=== PATIENT | male | born 1940 | race Caucasian/White ===

== ENCOUNTER 2016-09-20 09:04 | Emergency (ER) | payer OTHER ==
[2016-09-20 09:14] VITALS: BP 154/83; PULSE 91; TEMP 98; BMI 30.4
--- NOTE | 2016-09-20 09:15 | PDOC ---
History of Present Illness - General Chief Complaint: Shortness of Breath Stated Complaint: SHORTNESS OF BREATH Time Seen by Provider: 09/20/16 09:06 - History of Present Illness Initial Comments: 09/20/16 12:49 Chief complaint: Double vision and shortness of breath History of present illness: Patient with a history of myasthenia gravis for approximately 2 years, maintained on physostigmine and steroids. Taper his steroids on his own without DrSuellen recommendation approximately 3 weeks ago. Began to have double vision again approximately 3 days ago. At that time, he restarted his prednisone 40 mg daily. He has double vision which is intermittent , mostly when looking straight ahead or slightly to his right. He felt a little short of breath this morning when climbing stairs as well. There is been no muscle weakness of the extremities or difficulty ambulating Past medical history: Myasthenia gravis as noted above. No other active medical or surgical problems. Medications: Physostigmine, and prednisone as noted above Social history: No tobacco, occasional social alcohol, none recently, no nonprescription drugs. Fully active and without disability Family history: Reviewed and Noncontributory including early coronary artery disease, endocrine diseases, metabolic diseases including diabetes, and cancer Physical exam: Alert oriented 3 well-developed well-nourished no acute distress cheerful and cooperative. Patient is fully ambulatory without difficulty and without unsteady or ataxic gait Afebrile, vital signs normal Slight ptosis is apparent in the right eye. EOMs are full. There is subjective diplopia at times when looking at distant objects, but at other times stated vision is normal. Conjunctivae, anterior chambers, and cornea are clear. There is no weakness of the extraocular muscles. The eyes close completely and there is no lack of strength ENT clear Neck supple without bruit mass or nodes Lungs clear CV regular without murmur rub or gallop Abdomen benign Neurological C2 to 12 intact except as noted above. Strength full and symmetric. No focal sensory or motor deficits. Gait stable and unimpaired Impression: Exacerbation of myasthenia gravis due to cessation of prednisone. It is unlikely that this is an acute unrelated neurological cardiac event. His symptoms are exactly as they had been in the past that diagnosis and subsequently. He has no neurological symptoms and no cardiac symptoms Plan:. EKG and enzymes, labs, neurological consultation. Past History - Past Medical History Allergies/Adverse Reactions: Allergies Allergy/AdvReac Type Severity Reaction Status Date / Time No Known Allergies Allergy Verified 09/20/16 09:06 Home Medications: Ambulatory Orders Prednisone 40 mg PO DAILY 09/20/16 Pyridostigmine Capron [Mestinon] 60 mg PO ASDIR 09/20/16 HTN: Yes (NOT ON MEDS NOW.) Other medical history: MYASTHENIA - Surgical History Abdominal Surgery: Yes (HERNIA SX X 4 YEARS AGO) - Psycho/Social/Smoking Cessation Hx Anxiety: No Suicidal Ideation: No Smoking Status: No Smoking History: Never smoked Have you smoked in the past 12 months: No Number of Cigarettes Smoked Daily: 0 Hx Alcohol Use: Yes Drug/Substance Use Hx: No Substance Use Type: Alcohol *Physical Exam - Vital Signs Last Vital Signs Temp Pulse Resp BP Pulse Ox 98 F 91 H 18 154/83 95 09/20/16 09:05 09/20/16 09:05 09/20/16 09:05 09/20/16 09:05 09/20/16 09:05 ED Treatment Course - LABORATORY CBC & Chemistry Diagram: 09/20/16 09:23 09/20/16 09:23 Medical Decision Making - Medical Decision Making 09/20/16 12:[address] in the emergency room. No sign of other neurological disease was found. Recommended discharge, continuation of present still a dose, and follow-up with his neurologist as scheduled on Sunday. Return to ER if symptoms worsen or there or new symptoms that develop. Patient fully ambulatory and in no discomfort and with no disability upon discharge with his to follow-up as directed. *DC/Admit/Observation/Transfer Diagnosis at time of Disposition: Myasthenia gravis - Discharge Dispostion Disposition: HOME Condition at time of disposition: Stable Admit: No - Patient Instructions Printed Discharge Instructions: DI for Myasthenia Gravis ([facility]) Additional Instructions: See your neurologistDr. Canela as scheduled next Sunday. Maintain your prednisone temporarily at 40 mg per day. If symptoms worsen, return to the emergency room.
[2016-09-20 10:06] LABS: BASOPHIL 1.3 % (0-2.0); EOSINOPHIL 1.4 % (0-4.5); MCH 28.8 pg (25.7-33.7); MEAN CELL VOLUME 87.2 fl (80-96); MEAN PLT VOLUME 8.8 fl (7.5-11.1); NEUTROPHILS 62.1 % (42.8-82.8); PLATELET COUNT 255 K/MM3 (134-434); RDW 13.3 % (11.9-15.9)
[2016-09-20 10:07] LABS: INR 0.98 (0.82-1.09)
[2016-09-20 10:10] LABS: ALBUMIN 4.2 g/dl (3.5-5.0); ALK PHOS 66 U/L (32-92); ANION GAP 8 (8-16); BILIRUBIN,TOTAL 1.1 mg/dl (0.2-1.0); CALCIUM 9.4 mg/dl (8.4-10.2); CO2 27 mmol/L (22-28); GLUCOSE,RANDOM 88 mg/dl (74-106); SGOT/AST 40 U/L (10-42); SGPT/ALT 35 U/L (10-40)
[2016-09-20 10:43] LABS: TROPONIN I (DFP) < 0.03 ng/ml (0.03-0.50)
[2016-09-20 10:45] LABS: CK MB 17.5 ng/ml (0.3-4.0); CPK(DFH) 659 IU/L (38-174)
[2016-09-20 10:48] LABS: CK INDEX FOR DOBBS 2.7 % (0.0-5.0)
--- NOTE | 2016-09-20 13:11 | EKG ---
Test Reason : Blood Pressure : / mmHG Vent. Rate : 070 BPM Atrial Rate : 070 BPM P-R Int : 182 ms QRS Dur : 126 ms QT Int : 426 ms P-R-T Axes : 049 -05 032 degrees QTc Int : 460 ms SINUS RHYTHM NON-SPECIFIC INTRA-VENTRICULAR CONDUCTION BLOCK NO PREVIOUS ECGS AVAILABLE Confirmed by ANIBAL VIRGEN MD ([id number] on 09/20/2016 1:10:55 PM Referred By: KAYCE QUIJANO Confirmed By:ANIBAL VIRGEN MD
== END 2016-09-20 11:40 | disposition home or self-care (01) ==
LOC: FER 09:04
DX: G70.00 Myasthenia gravis without (acute) exacerbation (principal)
CPT/HCPCS: 36415; 71020-TC; 80053; 82550; 82553; 84484; 85025; 85610; 93005; 99284-25

== ENCOUNTER 2021-06-08 06:58 | Day surgery (SDC) | payer OTHER ==
[2021-06-06 14:19] VITALS: BMI 27.3
[2021-06-08] MEDS ORDERED: TOBRAMYCIN 0.3% OPHTH SOLN 5 ML BOTTLE ONE (07:31)
[2021-06-08] MEDS: CYCLOPENTOLATE 2% OPHTH SOLN 2 ML BOTTLE ONE ×3 (07:50→08:00)
[2021-06-08] MEDS: TROPICAMIDE 1% OPHTH SOLN 15 ML BOTTLE ONE ×3 (07:50→08:00)
[2021-06-08] MEDS: PHENYLEPHRINE 2.5% OPHTH SOLN 15 ML BOTTLE ONE ×3 (07:50→08:00)
[2021-06-08] MEDS: TOBRAMYCIN 0.3% OPHTH SOLN 5 ML BOTTLE OD SCH ×3 (07:50→08:00)
[2021-06-08] MEDS ORDERED: PHENYLEPHRINE/KETOROLAC 4 ML VIAL IO ONE (08:34)
[2021-06-08] MEDS ORDERED: TETRACAINE 0.5% OPHTH SOLN 2 ML BOTTLE ONE (08:34)
[2021-06-08] MEDS ORDERED: LIDOCAINE 1% P/F 10 MG/ML VIAL ONE (08:34)
[2021-06-08] MEDS ORDERED: BSS (NA/CA/MG/K) BALANCED SALT SOLUTION OPHTH SOLN 15 ML BOTTLE ONE (08:35)
[2021-06-08] MEDS ORDERED: NEO/POLYMYX B SULF/DEXAMETH OPHTHALMIC 5ML BOTTLE ONE (08:35)
[2021-06-08] MEDS ORDERED: CARBACHOL 0.01% INTRA-OCULAR 1.5 ML VIAL ONE (08:35)
[2021-06-08 09:25] VITALS: TEMP 96.4
[2021-06-08 09:38] VITALS: BP 133/82; PULSE 68
== END 2021-06-08 09:41 | disposition home or self-care (01) ==
LOC: FASU 06:58
PROVIDERS: ATTEND Ophthalmology
PROC: 08RJ3JZ Replacement of Right Lens with Synthetic Substitute, Percutaneous Approach (ICD-10-PCS; principal; 2021-06-08 08:51)
DX: H26.8 Other specified cataract (principal)
CPT/HCPCS: 66984; V2632; J1097

== ENCOUNTER 2021-06-09 12:21 | Emergency (ER) | payer OTHER ==
[2021-06-09 13:15] VITALS: BP 153/88; PULSE 92; TEMP 98.8; BMI 25.8
[2021-06-09] MEDS ORDERED: KETOROLAC TROMETHAMINE 30 MG/1 ML VIAL IM ONE (14:11)
[2021-06-09] MEDS ORDERED: LIDOCAINE 5% TOPICAL PATCH TP ONE (14:11)
[2021-06-09 14:26] LABS: AMORP PHOS 1+ /hpf (NONE SEEN)
[2021-06-09] MEDS ORDERED: KETOROLAC TROMETHAMINE 30 MG/1 ML VIAL ONE (14:27)
[2021-06-09] MEDS ORDERED: LIDOCAINE 5% TOPICAL PATCH ONE (14:28)
[2021-06-09] MEDS ORDERED: LIDOCAINE PATCH REMOVAL MC SCH (22:00)
== END 2021-06-09 15:11 | disposition home or self-care (01) ==
LOC: FER 12:21
PROC: 3E0233Z Introduction of Anti-inflammatory into Muscle, Percutaneous Approach (ICD-10-PCS; principal; 2021-06-09)
DX: M54.2 Cervicalgia (principal)
CPT/HCPCS: 72125-TC; 81003; 81015; 87086; 99284-25